=== PATIENT | female | born 1940 | race Caucasian/White ===

== ENCOUNTER 2018-04-28 06:32 | Day surgery (SDC) | payer MEDICARE, OTHER ==
[~2018-04-28] VITALS: Ht 165.1 cm; Wt 74.7 kg
[2018-04-28] VITALS (14 sets, daily range): BP systolic 117–151; BP diastolic 65–83
[2018-04-28] MEDS ORDERED: LEVO125T8 PO (07:06)
[2018-04-28] MEDS ORDERED: CARV-50 PO (07:06)
[2018-04-28] MEDS ORDERED: MULT-955 PO (07:06)
[2018-04-28] MEDS ORDERED: PANT40TA4 PO (07:06)
[2018-04-28] MEDS ORDERED: FURO40TA4 PO (07:06)
[2018-04-28] MEDS ORDERED: MECL12.584 PO (07:06)
[2018-04-28] MEDS ORDERED: ATOR40TA PO (07:06)
[2018-04-28] MEDS ORDERED: LISI40TA4 PO (07:06)
[2018-04-28] MEDS ORDERED: AMIO200T40 PO (07:06)
[2018-04-28] MEDS ORDERED: POTA10TA10 PO (07:06)
[2018-04-28] MEDS ORDERED: RIVA15TA PO (07:06)
[2018-04-28] MEDS ORDERED: MIDAZolam 5mg/ml 2ml vial IV ONE (07:10)
[2018-04-28] MEDS ORDERED: normal saline 1000ml 1,000 ML IV SCH (07:10)
[2018-04-28] MEDS ORDERED: fentaNYL/PF 50MCG/1 ML 2ML syringe IV ONE (07:10)
[2018-04-28 07:52] LABS: ANION GAP 12 (8-16); BLOOD UREA NITROGEN 23 MG/DL (7-18); BUN/CREATININE RATIO 11.8 (6.6-38.0); CHLORIDE 107 MMOL/L (99-107); CREATININE 1.95 MG/DL (0.40-0.90); GLUCOSE 105 MG/DL (70-104); POTASSIUM 3.1 MMOL/L (3.5-5.1); SODIUM 144 MMOL/L (135-145); TOTAL CARBON DIOXIDE 24.8 MMOL/L (24-32); eGFR 25 ML/MIN
[2018-04-28 07:59] LABS: INR 1.1 INR; PROTHROMBIN TIME 11.2 SECONDS (9.0-12.0)
[2018-04-28 08:12] LABS: BASOPHILS % (AUTO) 0.3 % (0-1); EOSINOPHILS # (AUTO) 0.1 X10'3 (0-0.9); LYMPHOCYTES # (AUTO) 0.6 X10'3 (1.1-4.8); LYMPHOCYTES % (AUTO) 13.3 % (21-51); MEAN CORPUSCULAR HEMOGLOBIN 23.6 PG (27.0-31.0); MEAN CORPUSCULAR HGB CONC 31.6 % (33.0-36.5); MEAN CORPUSCULAR VOLUME 74.6 FL (78-98); MEAN PLATELET VOLUME 10.2 FL (7.4-10.4); MONOCYTES # (AUTO) 0.4 X10'3 (0-0.9); MONOCYTES % (AUTO) 7.8 % (2-12); NEUTROPHILS # (AUTO) 3.4 X10'3 (1.8-7.7); NEUTROPHILS % (AUTO) 75.6 % (42-75); PLATELET COUNT 153 X10'3 (140-440); RED BLOOD COUNT 2.87 X10'6 (4.20-5.60); RED CELL DISTRIBUTION WIDTH 17.3 % (11.5-14.5); WHITE BLOOD COUNT 4.5 X10'3 (4.5-11.0)
[2018-04-28 08:17] LABS: HEMATOCRIT 21.4 % (35.0-45.0); HEMOGLOBIN 6.8 g/dl (12.0-16.0)
== END 2018-04-28 11:15 | disposition home or self-care (01) ==
LOC: SSTAY O 06:32
PROVIDERS: ATTEND Internal Medicine Cardiovascular Disease
DX: I48.91 Unspecified atrial fibrillation (principal); I48.4 Atypical atrial flutter; I11.0 Hypertensive heart disease with heart failure; I50.9 Heart failure, unspecified; I25.2 Old myocardial infarction; J45.909 Unspecified asthma, uncomplicated; E03.9 Hypothyroidism, unspecified; I25.10 Atherosclerotic heart disease of native coronary artery without angina pectoris; I42.9 Cardiomyopathy, unspecified; Z87.01 Personal history of pneumonia (recurrent); E05.00 Thyrotoxicosis with diffuse goiter without thyrotoxic crisis or storm; Z87.440 Personal history of urinary (tract) infections; Z86.11 Personal history of tuberculosis; Z88.8 Allergy status to other drugs, medicaments and biological substances; Z79.899 Other long term (current) drug therapy; Z90.49 Acquired absence of other specified parts of digestive tract; Z98.890 Other specified postprocedural states
CPT/HCPCS: 36415; 80048; 83735; 85025; 85610; 92960; 93005; J2250; J3010; J7030

== ENCOUNTER 2019-03-30 09:30 | Day surgery (SDC) | payer MEDICARE, OTHER ==
[2019-03-30] VITALS (11 sets, daily range): BP systolic 135–154; BP diastolic 77–97
[~2019-03-30] VITALS: Ht 165.1 cm; Wt 63.8 kg
[~2019-03-30 09:30] MED LIST: AMIO200T61 PO; ATOR40TA PO; CARV-50 PO; FURO40TA4 PO; LEVO125T8 PO; LISI40TA4 PO; MECL12.584 PO; MULT-955 PO; PANT40TA4 PO; POTA10TA10 PO; RIVA15TA PO
[2019-03-30] MEDS ORDERED: MIDAZolam 5mg/ml 2ml vial IV ONE (09:55)
[2019-03-30] MEDS ORDERED: fentaNYL/PF 50MCG/1 ML 2ML syringe IV ONE (09:55)
[2019-03-30] MEDS ORDERED: IRON45TA7 PO (10:07)
[2019-03-30 10:30] LABS: ALBUMIN 3.8 G/DL (3.4-5.0); ANION GAP 11 (8-16); BLOOD UREA NITROGEN 31 MG/DL (7-18); BUN/CREATININE RATIO 15.7 (6.6-38.0); CALCIUM 8.5 MG/DL (8.5-10.1); CHLORIDE 109 MMOL/L (99-107); CREATININE 1.98 MG/DL (0.40-0.90); GLUCOSE 105 MG/DL (70-104); MAGNESIUM 2.2 MG/DL (1.5-2.4); POTASSIUM 3.5 MMOL/L (3.5-5.1); SODIUM 145 MMOL/L (135-145); TOTAL CARBON DIOXIDE 25.3 MMOL/L (24-32); eGFR 24 ML/MIN
[2019-03-30 10:41] LABS: BASOPHILS % (AUTO) 0.5 % (0-1); EOSINOPHILS # (AUTO) 0.1 X10'3 (0-0.9); EOSINOPHILS % (AUTO) 1.9 % (0-6); HEMATOCRIT 37.8 % (35.0-45.0); HEMOGLOBIN 12.8 g/dl (12.0-16.0); LYMPHOCYTES # (AUTO) 0.8 X10'3 (1.1-4.8); MEAN CORPUSCULAR HEMOGLOBIN 31.7 PG (27.0-31.0); MEAN CORPUSCULAR HGB CONC 33.8 g/dL (33.0-36.5); MEAN CORPUSCULAR VOLUME 93.7 FL (78-98); MEAN PLATELET VOLUME 10.2 FL (7.4-10.4); MONOCYTES # (AUTO) 0.3 X10'3 (0-0.9); MONOCYTES % (AUTO) 6.7 % (2-12); NEUTROPHILS # (AUTO) 2.9 X10'3 (1.8-7.7); NEUTROPHILS % (AUTO) 71.9 % (42-75); PLATELET COUNT 98 X10'3 (140-440); RED BLOOD COUNT 4.03 X10'6 (4.20-5.60)
== END 2019-03-30 12:15 | disposition home or self-care (01) ==
LOC: SSTAY O 09:30
PROVIDERS: ATTEND Internal Medicine Cardiovascular Disease
DX: I48.19 Other persistent atrial fibrillation (principal); Z79.01 Long term (current) use of anticoagulants; I25.10 Atherosclerotic heart disease of native coronary artery without angina pectoris; E03.9 Hypothyroidism, unspecified; I44.7 Left bundle-branch block, unspecified
CPT/HCPCS: 36415; 80048; 83735; 85025; 85610; 92960; 93005; J2250; J3010

== ENCOUNTER 2021-01-30 07:21 | Day surgery (SDC) | payer MEDICARE, OTHER ==
[~2021-01-30] VITALS: Ht 165.1 cm; Wt 60.7 kg
[2021-01-30] VITALS (11 sets, daily range): BP systolic 110–135; BP diastolic 71–94
[~2021-01-30 07:21] MED LIST changes: -ATOR40TA PO; +IRON45TA7 PO; +LISI40TA13 PO; -LISI40TA4 PO; -MECL12.584 PO; -PANT40TA4 PO; +PANT40TA54 PO
[2021-01-30] MEDS ORDERED: fentaNYL/PF 50MCG/1 ML 2ML syringe IV ONE (07:55)
[2021-01-30] MEDS ORDERED: normal saline 1000ml 1,000 ML IV SCH (07:55)
[2021-01-30] MEDS ORDERED: MIDAZolam 1mg/ml 10ml vial IV ONE (07:55)
[2021-01-30] MEDS ORDERED: APIX5TAB3 PO (07:57)
[2021-01-30] MEDS ORDERED: CARV-49 PO (07:57)
[2021-01-30] MEDS ORDERED: BACI1CAP10 (07:58)
[2021-01-30 09:16] LABS: ALBUMIN 3.2 G/DL (3.4-5.0); ANION GAP 9 (8-16); BLOOD UREA NITROGEN 28 MG/DL (7-18); BUN/CREATININE RATIO 15.5 (6.6-38.0); CALCIUM 8.5 MG/DL (8.5-10.1); CHLORIDE 108 MMOL/L (99-107); CREATININE 1.81 MG/DL (0.40-0.90); EOSINOPHILS # (AUTO) 0.1 X10'3 (0-0.9); GLUCOSE 90 MG/DL (70-104); HEMATOCRIT 36.9 % (35.0-45.0); HEMOGLOBIN 12.2 g/dl (12.0-16.0); LYMPHOCYTES # (AUTO) 0.6 X10'3 (1.1-4.8); LYMPHOCYTES % (AUTO) 15.2 % (21-51); MAGNESIUM 2.2 MG/DL (1.5-2.4); MEAN CORPUSCULAR HEMOGLOBIN 31.2 PG (27.0-31.0); MEAN CORPUSCULAR VOLUME 94.7 FL (78-98); MONOCYTES # (AUTO) 0.3 X10'3 (0-0.9); MONOCYTES % (AUTO) 9.1 % (2-12); NEUTROPHILS # (AUTO) 2.7 X10'3 (1.8-7.7); NEUTROPHILS % (AUTO) 72.7 % (42-75); PLATELET COUNT 116 X10'3 (140-440); POTASSIUM 3.5 MMOL/L (3.5-5.1); RED CELL DISTRIBUTION WIDTH 17.5 % (11.5-14.5); SODIUM 144 MMOL/L (135-145); TOTAL CARBON DIOXIDE 27.4 MMOL/L (24-32); WHITE BLOOD COUNT 3.8 X10'3 (4.5-11.0); eGFR 27 ML/MIN
== END 2021-01-30 12:15 | disposition home or self-care (01) ==
LOC: SSTAY O 07:21
PROVIDERS: ATTEND Internal Medicine Cardiovascular Disease
DX: I48.4 Atypical atrial flutter (principal); I25.10 Atherosclerotic heart disease of native coronary artery without angina pectoris; E03.9 Hypothyroidism, unspecified; I47.1 Supraventricular tachycardia; I44.7 Left bundle-branch block, unspecified; I42.9 Cardiomyopathy, unspecified; Z87.442 Personal history of urinary calculi; Z87.440 Personal history of urinary (tract) infections; Z90.49 Acquired absence of other specified parts of digestive tract; Z98.890 Other specified postprocedural states; Z79.01 Long term (current) use of anticoagulants; Z79.899 Other long term (current) drug therapy; Z88.8 Allergy status to other drugs, medicaments and biological substances; Z82.49 Family history of ischemic heart disease and other diseases of the circulatory system; Z83.6 Family history of other diseases of the respiratory system
CPT/HCPCS: 36415; 80048; 83735; 85025; 85610; 92960; 93005; 94799; J2250; J3010; J7030

== ENCOUNTER 2024-11-13 06:26 | Day surgery (SDC) | payer MEDICARE, OTHER ==
[2024-11-13] VITALS (8 sets, daily range): BP systolic 112–159; BP diastolic 73–100; PULSE 60–70; RESP 16; TEMP 97.6; O2SAT 92–98
[~2024-11-13] VITALS: Ht 165.1 cm; Wt 56.1 kg
[~2024-11-13 06:26] MED LIST changes: -AMIO200T61 PO; +AMIO200T76 PO; +APIX5TAB3 PO; +BACI1CAP10; +CARV-49 PO; -CARV-50 PO; -LISI40TA13 PO; +LISI40TA20 PO; -MULT-955 PO; +POTA-188 PO; -POTA10TA10 PO; -RIVA15TA PO
[2024-11-13] MEDS ORDERED: ceFAZolin 2,000MG in D5W 50mL IV ONE (07:00)
[2024-11-13] MEDS ORDERED: CARV12.53 PO (07:17)
--- NOTE | 2024-11-13 07:17 | ELECTROCARDIOGRAPH REPORT ---
[facility] Test Date: 2024-11-13 Test Time: 07:15:24 Pat Name: DRE ESPINOZA Department: [facility] Patient ID: [facility]-[id number] Room: Gender: F Fishing Accessories Maker: THOMAS : 1940 Requested By: VICENTE SAINZ Order Number: [id number] Reading MD: Dr. DEBO Deshpande Measurements Intervals [employer] Rate: 60 P: 0 MN: 52 QRS: 268 QRSD: 165 T: 93 QT: 550 QTc: 550 Interpretive Statements Ventricular-paced rhythm No further analysis attempted due to paced rhythm Electronically Signed On 11-14-2024 15:38:[address] DEBO Deshpande Please click the below link to view image of tracing.
[2024-11-13 07:24] LABS: MEAN PLATELET VOLUME 10.2 FL (7.4-10.4); RED CELL DISTRIBUTION WIDTH 16.4 % (11.5-14.5)
[2024-11-13 07:25] LABS: APTT 24 SECONDS (22-32); INR 1.0 INR
[2024-11-13] MEDS ORDERED: CALC250T2 PO (07:25)
[2024-11-13] MEDS ORDERED: MULT-1085 PO (07:25)
[2024-11-13] MEDS ORDERED: ANTI1CAP5 (07:28)
[2024-11-13 07:30] LABS: CREATININE 1.92 MG/DL (0.40-0.90); TOTAL CARBON DIOXIDE 26.6 MMOL/L (24-32); eCRCL 19 ML/MIN; eGFR 25 ML/MIN
[2024-11-13] MEDS: vancomycin/NS 1 GM ADD-VANTAGE 250 ML IV ONE (07:48)
[2024-11-13] MEDS: normal saline 1000ml 1,000 ML IV PRN (07:48)
[2024-11-13] MEDS ORDERED: LIDOcaine 1% W/epiNEPHrine 1:100,000 20ml vial ONE (08:45)
[2024-11-13] MEDS ORDERED: fentaNYL/PF 50MCG/1 ML 2ML syringe ONE (08:45)
[2024-11-13] MEDS ORDERED: midazolam 1 mg/ML 2ml injection ONE ×2 (08:45→09:35)
[2024-11-13] MEDS ORDERED: vancomycin 1,000mg inj ONE (08:45)
[2024-11-13] MEDS ORDERED: normal saline 500ml IV soln 400 ML IV ONE (10:50)
--- NOTE | 2024-11-13 11:42 | CARDIOLOGY REPORT ---
DATE OF SERVICE: 11/13/2024 DICTATING PHYSICIAN: SANTOS SAINZ DO CARDIAC CATHETERIZATION REPORT REFERRING PHYSICIAN: Santos Sainz DO. PROCEDURES PERFORMED: * Removal of existing biventricular pacemaker/ICD pulse generator. * Pacemaker pocket revision. * Implant of new biventricular pacemaker/ICD pulse generator. PREOPERATIVE DIAGNOSES: * Left bundle branch block. * Cardiomyopathy associated with left bundle branch block. * Pacemaker defibrillator generator at the elective replacement interval. POSTOPERATIVE DIAGNOSES: * Left bundle branch block. * Cardiomyopathy associated with left bundle branch block. * Pacemaker defibrillator generator at the elective replacement interval. CLINICAL HISTORY: This 84-year-old woman has previously developed a severe cardiomyopathy associated with left bundle branch block. For that reason, she received a biventricular pacemaker/ICD in early 03/2013. The generator was replaced in 05/2019, but it is again at the elective replacement interval. ANESTHESIA: Conscious sedation with local to skin. DEVICE REMOVED: Medtronic pulse generator, model number [id number] and serial number [id number]. EXISTING ELECTRODES: Medtronic coronary venous/LV electrode, model number 4195 and serial number [id number]; Medtronic RVICD electrode, model number 6947 and serial number [id number]; Medtronic atrial electrode model number 4076 and serial number [id number]. DEVICE IMPLANTED: Medtronic pulse generator, model number [id number] and serial number [id number]. DESCRIPTION OF PROCEDURE: The patient was sedated with fentanyl and Versed. She was then prepared and draped in the usual manner. The left pectoral region was liberally infiltrated with 1% lidocaine containing a 1:100,000 mixture of epinephrine. The pacemaker pocket was then opened by incising along the existing scar line. The entire encapsulation of the generator and electrodes was removed. A subpectoral pocket was then easily created. The old generator was removed and the new generator was attached to the existing electrodes. Next, the electrodes and the generator were placed in the subpectoral pocket. The entire pocket was then irrigated with a vancomycin antibiotic solution. The generator was enclosed in a TYRX pouch. The subpectoral pocket was closed loosely with 3-0 Vicryl. The subcutaneous layer was also closed with 3-0 Vicryl and the skin was approximated with 4-0 Monocryl. ESTIMATED BLOOD LOSS: Less than 5 mL. COMPLICATIONS: None. ____ parameters were as follows: Mode DDDR, LRL 60 BPM, upper activity rate 120 BPM, upper tracking rate 130 BPM, paced AV delay 130 milliseconds, sensed AV delay 100 milliseconds. Amplitude, pulse width and sensitivity in both atrial and right ventricular electrodes was set at 2 volts, 0.4 milliseconds and 0.3 millivolts, respectively. Left ventricular amplitude was set at 2 volts with a pulse width of 0.4 milliseconds. For the ventricular tachyarrhythmia management algorithms, please see the Medtronic implant record. SANTOS SAINZ DO TID: [id number] RECEIPT: [id number] RYLEY/ANDRÉS
== END 2024-11-13 12:00 | disposition home or self-care (01) ==
LOC: SSTAY O 06:26
PROVIDERS: ATTEND Internal Medicine Cardiovascular Disease
DX: Z45.02 Encounter for adjustment and management of automatic implantable cardiac defibrillator (principal); I44.7 Left bundle-branch block, unspecified; I42.9 Cardiomyopathy, unspecified; I25.10 Atherosclerotic heart disease of native coronary artery without angina pectoris; N18.4 Chronic kidney disease, stage 4 (severe); I48.0 Paroxysmal atrial fibrillation; E03.9 Hypothyroidism, unspecified; I48.20 Chronic atrial fibrillation, unspecified; Z79.01 Long term (current) use of anticoagulants; Z79.890 Hormone replacement therapy; Z79.899 Other long term (current) drug therapy; Z90.49 Acquired absence of other specified parts of digestive tract; Z90.89 Acquired absence of other organs; Z88.6 Allergy status to analgesic agent
CPT/HCPCS: 33264; 36415; 80048; 83735; 85025; 85610; 85730; 93005; 99152; 99153; A6258; C1882; J2250; J3010; J3373; J3490; J7030; Z7610; 33229

== ENCOUNTER 2025-01-11 00:20 | Inpatient (IN) | payer MEDICARE, OTHER ==
[2025-01-11] VITALS (30 sets, daily range): BP systolic 83–152; BP diastolic 47–87; PULSE 60–69; RESP 11–21; TEMP 96.9–97.7; O2SAT 91–99
[~2025-01-11] VITALS: Ht 165.1 cm; Wt 57.6 kg
[~2025-01-11 00:20] MED LIST changes: +ANTI1CAP5 PO; +CALC250T2 PO; -CARV-49 PO; +CARV12.53 PO; +MULT-1085 PO
[2025-01-11 02:02] LABS: MEAN PLATELET VOLUME 9.8 FL (7.4-10.4); RED CELL DISTRIBUTION WIDTH 16.9 % (11.5-14.5)
[2025-01-11 02:10] LABS: APTT 27 SECONDS (22-32); INR 1.2 INR
[2025-01-11 02:13] LABS: CREATININE 1.47 MG/DL (0.40-0.90); TOTAL CARBON DIOXIDE 28.8 MMOL/L (24-32); eCRCL 25 ML/MIN; eGFR 34 ML/MIN
[2025-01-11] MEDS: magnesium sulf-water 2g/50mL 50 ML IV ONE (02:44)
[2025-01-11] MEDS: potassium CL 10mEq/100ml bag 100 ML IV ONE (02:50)
[2025-01-11] MEDS: potassium Cl 20 mEq SR tablet PO ONE (02:51)
--- NOTE | 2025-01-11 03:36 | Physician Documentation ---
History of Present Illness ~ Chief Complaint: Hip pain Stated Complaint: XFER Time Seen by MD: 03:27 OK to notify your PCP?: Yes Source: patient, RN/MD, EMS, RN notes reviewed, EMS notes reviewed, old records Mode of Arrival: EMS Exam Limitations: no limitations HPI This pleasant 84-year-old female with a known history of hypertension hyperthyroidism cardiomyopathy AFib on Eliquis apparently has a ground level fall after she stepped off the curb losing her balance. She landed on her right hip had immediate pain. She did hit her head. Did not lose consciousness. She is unable to ambulate went to [facility] in [place]. Patient was worked up and was found to have a intertrochanteric right hip fracture. Patient apparently has an ejection fraction of 15-20% secondary to mild aortic stenosis which was last done on 2020. Patient is complaining of some pain. As well as some nausea for which her pain was treated with morphine and also received some Zofran. She is now here for evaluation and care. Patient is radiographic studies of the CT spine CT head were all negative CT pelvis showed a fracture. Past medical history hyperthyroidism atrial fibrillation on Eliquis coronary a rtery disease congestive heart failure with an EF of 15-20% Graves disease kidney stones left bundle branch block prior pneumonia SVT UTIs hypothyroidism hyperthyroidism cardiomyopathy. SVT Surgical history cholecystectomy Social history denies tobacco alcohol or recreational drugs. Tetanus within 5 Years?: Yes Medication Reconciliation Allergies: Coded Allergies: aspirin (Verified Allergy, Unknown, 01/11/25) Uncoded Allergies: MRI DYE (Allergy, Unknown, 04/28/18) Scheduled Amiodarone Hcl (Cordarone), 1 TAB PO DAILY, (Reported) Apixaban (Eliquis), 1 TAB PO BID, (Reported) Calcium Citrate (Calcium Citrate), 1 TAB PO DAILY, (Reported) Carvedilol (Carvedilol), 1 TAB PO BID, (Reported) Furosemide (Furosemide), 1 TAB PO DAILY, (Reported) Iron,Carbonyl (Feosol), 45 MG PO DAILY, (Reported) Levothyroxine Sodium (Levothyroxine Sodium), 1 TAB PO DAILY, (Reported) Lisinopril* (Lisinopril*), 1 TAB PO BID, (Reported) Multivitamin (Multi Vitamin Daily), 1 TAB PO DAILY, (Reported) Pantoprazole Sodium (Pantoprazole Sodium), 1 TAB PO DAILY, (Reported) Potassium Chloride* (Klor-Con*), 2 TAB PO DAILY, (Reported) Miscellaneous Medications Antiox #11/Om3/Dha/Epa/Lut/Mar (Eye Health Adult 50+ Softgel), (Reported) Bacillus Coagulans/Inulin (Probiotic Formula Capsule), (Reported) Past Medical History Patient History: Cardiomyopathy FATHER, , Age: 75, Cause: Old age FH: COPD (chronic obstructive pulmonary disease) MOTHER, , Age: 79, Cause: Old age Review of Systems All Other Systems at this time: Reviewed and Negative Physical Exam Vital Signs: RN Vital Signs have been reviewed: Yes, Temperature: 97.5, Source: Oral, Heart Rate: 64, Respiratory Rate: 12, BP: 156/88, Pulse Oximetry: 99, Weight: 57.600 Oxygen Flow Rate: 2.0 Physical Exam General: The patient is well developed, well nourished, nontoxic appearing and is in mild acute distress. Skin: [place], warm and dry with no rashes. HEENT: Head was normocephalic and atraumatic. Eyes - pupils equal, round, reactive to light and accommodation. Extraocular movements were intact. Conjunctivae were nonicteric. The mouth and oropharynx were clear with moist mucous membranes. There were no pharyngeal exudates or erythema. Neck: Supple and nontender. There was no jugular venous distention, Chest: Clear to auscultation bilaterally without wheezes, rales or rhonchi. No accessory muscle use. Heart: Rate regular and rhythmic. S1, S2. 3/6 systolic ejection murmurs. Palpation of the chest wall was normal. No rubs or thrills. Abdomen: Soft, nontender and nondistended. Positive bowel sounds. No guarding or rebound. No hepatosplenomegaly or palpable masses. Extremities: No cyanosis, clubbing The patient moves all extremities. Pulses were equal and symmetric. 2+ pitting edema bilaterally lower extremities decreased range of motion right hip Neurologic: Motor sensory grossly intact Psychologic: The patient was oriented to person, place and time. The patient demonstrated appropriate judgement and insight. Progress Progress Note 3:30 a.m. [facility] orthopedic surgery is aware of the case. 4 a.m. discussed the case with the hospitalist Results/Orders Reviewed/noted all lab results: Yes Results/Orders Orders - NELSON CASTRO MD Ekg Pre Op (01/11/25 01:06) Magnesium Sulf-Water 2g/50ml (Magnesium (01/11/25 02:20) Chest,Single View (01/11/25 ) Completed Orders - NELSON CASTRO MD Cbc/Diff (01/11/25 01:06) Pt Inr (01/11/25 01:06) PTT (01/11/25 01:06) Type And Screen (01/11/25 01:06) CMP (01/11/25 01:06) Magnesium Oxide Tablet (Mag-Ox 400mg Tab (01/11/25 02:20) Potassium Cl Sr Tablet (K-Dur Tablet) (01/11/25 02:20) Potassium Cl 10meq/100ml Bag (Potassium (01/11/25 02:20) MG (01/11/25 01:35) Medications Received in ER Medications (Trade) Dose Ordered Sig/Vincent Route PRN Reason Start Time Stop Time Status Last Admin Dose Admin (mag-Ox 400mg tablet) 400 mg ONCE ONCE PO 01/11/25 02:20 01/11/25 02:21 DC 01/11/25 02:50 400 MG Magnesium Sulfate 50 ml @ 25 mls/hr ONCE ONCE IV 01/11/25 02:20 01/11/25 04:19 01/11/25 02:44 25 MLS/HR (K-DUR tablet) 20 meq ONCE ONCE PO 01/11/25 02:20 01/11/25 02:21 DC 01/11/25 02:51 20 MEQ Potassium Chloride 100 ml @ 100 mls/hr ONCE ONCE IV 01/11/25 02:20 01/11/25 03:19 DC 01/11/25 02:50 100 MLS/HR Vital Signs 01/11/25 01/11/25 01/11/25 01/11/25 00:28 02:21 02:23 03:14 Temp 97.5 97.5 Pulse 63 64 Resp 14 12 B/P (MAP) 169/95 156/88 (110) Pulse Ox 98 99 O2 Flow Rate 2.0 2.0 Laboratory Tests Test 01/11/25 01:35 White Blood Count 8.2 Red Blood Count 3.76 L Hemoglobin 11.9 L Hematocrit 35.4 Mean Corpuscular Volume 94.1 Mean Corpuscular Hemoglobin 31.6 H Mean Corpuscular Hemoglobin Concent 33.5 Red Cell Distribution Width 16.9 H Platelet Count 102 L Mean Platelet Volume 9.8 Neutrophils (%) (Auto) 81.6 H Lymphocytes (%) (Auto) 8.9 L Monocytes (%) (Auto) 8.8 Eosinophils (%) (Auto) 0.4 Basophils (%) (Auto) 0.3 Neutrophils # (Auto) 6.7 Lymphocytes # (Auto) 0.7 L Monocytes # (Auto) 0.7 Eosinophils # (Auto) 0.0 Basophils # (Auto) 0.0 CBC Comment Prothrombin Time 11.9 INR International Normalized Ratio 1.2 Activated Partial Thromboplast Time 27 Coagulation Comments Sodium Level 144 Potassium Level 2.9 *L Chloride Level 108 H Carbon Dioxide Level 28.8 Anion Gap 7 L Blood Urea Nitrogen 25 H Creatinine 1.47 H Estimated GFR/1.73 m2 34 BUN/Creatinine Ratio 17.0 Glucose Level 119 H Calcium Level 8.4 L Magnesium Level 1.9 Total Bilirubin 1.2 H Aspartate Amino Transf (AST/SGOT) 17 Alanine Aminotransferase (ALT/SGPT) 16 Alkaline Phosphatase 63 Total Protein 6.2 L Albumin 3.3 L Globulin 2.9 Albumin/Globulin Ratio 1.1 Chemistry Comments Re-Evaluation Re-Evaluation : Re-Evaluation: Unchanged Progress Patient was seen and examined. Patient is given reassurance. Patient is comfortable received pain meds just prior to arrival. Patient is currently comfortable sleeping. Patient's laboratory work was obtained. CBC is within normal limits no anemia. Chemistry shows a low potassium of 2.9. Magnesium 1.9 patient's electrolytes were supplemented. Slight prerenal dehydration with a BUN of 25 creatinine 1.47. Coagulation is within normal limits. Patient was initially treated at [place]. Patient's potassium at [place] was 3.2. BUN was 27 creatinine was 1.51. Patient has been on a spanish instructor and pending preoperative workup and admission. Continuous spanish instructor interpretation shows normal sinus rhythm heart rate 60s paced rhythm. No ectopy, normal, my interpretation. Pulse oximetry monitor interpretation shows oxygenation at 98% on 2 L, abnormal, my interpretation. EKG/XRAY/CT/US/VASC/MRI EKG : Intepreting Monitor?: Yes Additional Comment 1:08 a.m. EKG shows paced rhythm wide QRS complex QTC 537 poor R-wave progression Medical Decision Making Additional info obtained from: old records Differential Dx:Considerations: Include: Closed head injury, Cardiac injury, Fracture(s), Intraabdominal injury, Pneumothorax, Cerebral contusion, Pulmonary contusion, Spine injury, Tracheal injury, Urological injury, Vascular injury, Abrasion(s), Contusion(s), Foreign body(s), Hematoma(s), Laceration(s), Encephalopathy, Other Departure Disposition: ADMITTED INPATIENT Admitted to Inpatient Unit: yes, to hospitalist, to orthopedist Admission Level of Care: PCU with Tele Impression: Primary Impression: Fracture of femur Qualified Codes: S72.141A - Displaced intertrochanteric fracture of right femur, initial encounter for closed fracture Additional Impression: Hypokalemia Condition: Fair Referrals: NO PRIMARY CARE PROVIDER (PCP) Education Educated: Patient Educated regarding: diagnosis, need for follow up, other Critical Care Note Total Time (mins): 30 Critical Care Note The very real possibility of a deterioration of this patient's condition required the highest level of my preparedness for sudden, emergent intervention. I provided critical care services, which included medication orders, frequent reevaluations of the patient's condition and response to treatment, ordering and reviewing test results, and discussing the case with various consultants. Excludes time spent performing separately billable procedures. The critical care time associated with the care of the patient was. 30 minutes Signature Scribe Signature: No scribed Attestation: The note accurately reflects work and decisions made by me.Nelson Castro MD 01/11/25 03:36 NELSON CASTRO MD Jan 11, 2025 03:36
[2025-01-11] MEDS ORDERED: potassium Cl 20 mEq SR tablet PO PRN ×4 (04:25→08:45)
[2025-01-11] MEDS ORDERED: magnesium sulf-water 4G/100mL 100 ML IV PRN ×2 (04:25→08:45)
[2025-01-11] MEDS ORDERED: mag hydrox/Alum hydrox/simeth 30ml oral suspension PO PRN (04:25)
[2025-01-11] MEDS ORDERED: magnesium Cl slow-release 64mg tablet PO PRN (04:25)
[2025-01-11] MEDS ORDERED: magnesium sulf-water 2g/50mL 50 ML IV PRN ×2 (04:25→08:45)
[2025-01-11] MEDS: HYDROmorphone inj. 0.5 MG/0.5 ML DISP.SYRIN IV PRN (04:33)
--- NOTE | 2025-01-11 04:35 | HISTORY AND PHYSICAL-Residence ---
History & Physical Providers to CC Resident Creating Document: [employer] RES ~ History of Present Illness Reason for Admit\Complaint: Right hip fracture History of Present Illness This is an 84-year-old female patient with past medical history of AFib, HFrEF, hypertension, hypothyroidism, CKD, and pacemaker, who was transferred from [facility] due to a right hip fracture. She had a mechanical fall yesterday around 7:00 p.m. while stepping on a curb, falling on the right side of her hip, followed by severe pain and inability to ambulate. The patient also had a head injury, but denies syncope, nausea, vomiting, dizziness, or vision changes. Pain is now controlled, and she denies any other symptoms such as chest pain, shortness of breath, gastrointestinal, or urinary symptoms. No other complaints at this moment. Allergies: Coded Allergies: aspirin (Verified Allergy, Unknown, 01/11/25) Uncoded Allergies: MRI DYE (Allergy, Unknown, 04/28/18) Home Medications Home Medications Active Reported Eye Health Adult 50+ Softgel (Antiox #11/Om3/Dha/Epa/Lut/Mar) 250 Mg (90 Mg-160 Mg)-5 Mg-1 Mg Capsule Multi Vitamin Daily (Multivitamin) 1 Each Tablet 1 Tab PO DAILY 30 Days Calcium Citrate 250 Mg Calcium Tablet 1 Tab PO DAILY 30 Days Carvedilol 12.5 Mg Tablet 1 Tab PO BID Probiotic Formula Capsule (Bacillus Coagulans/Inulin) 1 Each Capsule Eliquis (Apixaban) 5 Mg Tablet 1 Tab PO BID Feosol (Iron,Carbonyl) 45 Mg Tablet 45 Mg PO DAILY Klor-Con* (Potassium Chloride) 10 Meq Tablet.sa 2 Tab PO DAILY 30 Days Lisinopril* (Lisinopril) 40 Mg Tablet 1 Tab PO BID Cordarone (Amiodarone HCl) 200 Mg Tablet 1 Tab PO DAILY Furosemide 40 Mg Tablet 1 Tab PO DAILY Levothyroxine Sodium 125 Mcg Tablet 1 Tab PO DAILY Pantoprazole Sodium 40 Mg Tablet.dr 1 Tab PO DAILY Past Medical History Past Medical History Atrial fibrillation Heart failure with reduced EF Hypertension Hypothyroidism Chronic kidney disease Biventricular pacemaker/ICD Past Surgical History Surgical History Comment Biventricular pacemaker/ICD Cholecystectomy Right inner ear surgery Family History Family History: Cardiomyopathy FATHER, , Age: 75, Cause: Old age FH: COPD (chronic obstructive pulmonary disease) MOTHER, , Age: 79, Cause: Old age Past Social History Smoking: Non-Smoker Alcohol Use: None Drug Use: None Lives with: Spouse Lives In: Home Occupation: retired ROS All Other Systems: Reviewed and Negative Constitutional: Reports: no symptoms reported; Denies: see HPI, chills, diaphoresis, fever, malaise, weakness, other Eyes: Denies: no symptoms reported, see HPI, pain, discharge, blurred vision, double vision, itching, photophobia, redness, tearing, other ENT: Denies: no symptoms reported, see HPI, ear pain, ear bleeding, ear discharge, hearing loss, ear ringing, nose pain, nose bleeding, nose congestion, nose discharge, throat pain, throat swelling, voice change, mouth pain, mouth bleeding, mouth swelling, other Respiratory: Denies: no symptoms reported, see HPI, cough, orthopnea, shortness of breath, SOB with exertion, SOB at rest, stridor, wheezing, hemoptysis, pain with breathing, other Cardiovascular: Denies: no symptoms reported, see HPI, chest pain, left arm pain, diaphoresis, lightheadedness, syncope, edema, palpitations, irregular heart rate, other Gastrointestinal: Denies: no symptoms reported, see HPI, abdomen distended, abdominal pain, nausea, vomiting, diarrhea, constipated, melena, hematemesis, hematochezia, rectal bleeding, rectal pain, dysphagia, poor appetite, poor fluid intake, other Genitourinary: Denies: no symptoms reported, see HPI, burning, discharge, dysuria, frequency, flank pain, hematuria, incontinence, pain, decreased urine output, urgency, other Female Genitalia: Denies: no reported symptoms, see HPI, vaginal discharge, vaginal pain, pelvic pain, abnormal bleeding, dyspareunia, , other Neurological: Reports: headache; Denies: no symptoms reported, see HPI, speech problem, dizziness, fainting, tingling, left sided numbness, right sided numbness, left sided weakness, right sided weakness, problems walking, unable to move lower ext, unable to move upper ext, petit mal seizures, tonic-clonic seizures, cognitive dysfunction, other Musculoskeletal: Reports: see HPI, pain, swelling, joint pain, muscle stiffness; Denies: no symptoms reported, back pain, gout, joint swelling, muscle pain, muscle swelling, neck pain, other Integumentary: Denies: no symptoms reported, see HPI, rash, itching, lesions, lumps, bruise(s), wound(s), laceration(s), dryness, change in color, other Allergic/Immunologic: Denies: no symptoms reported, see HPI, hives, itching, frequent infections, difficulty healing, other Hematologic/Lymphatic: Denies: no symptoms reported, see HPI, anemia, blood clots, easy bleeding, easy bruising, swollen glands, other Endocrine: Denies: no symptoms reported, see HPI, excessive sweating, flushing, intolerance to cold, intolerance to heat, increased hunger, increased thrist, increased urine, unexplained weight gain, unexplained weight loss, other Psychiatric: Denies: no symptoms reported, see HPI, depression, anxiety, sleeplessness, hopeless, suicidal, hallucinations, other Exam Vitals: Vital Signs Date Time Temp Pulse Resp B/P (MAP) Pulse Ox O2 Delivery O2 Flow Rate FiO2 01/11/25 03:14 01/11/25 02:21 97.5 64 12 99 2.0 General: General: Awake and Alert, no acute distress. HEENT: Conjunctiva pink, Sclera clear, Mucus Membranes moist. Neck: Supple without masses and tenderness. Resp: Unlabored. Lungs clear to auscultation bilaterally. Heart: Irregular Rate and rhythm, normal S1 and S2, systolic 2/6 murmur, no rub or gallop. Abdomen: Soft and non tender no organomegaly Extremities: Right lower extremity shorted and externally rotated. Bilateral 1+ pitting edema. No cyanosis or clubbing. Skin: Warm and Dry. Neuro: Awake, alert, oriented, speech is normal Cranial nerve exam-normal visual field, normal extraocular movements, normal facial sensations and facial movements, normal hearing, uvula in midline, tongue protrusion and shoulder shrugging normal Strength- normal tone, bilateral upper and lower extremity 5/5, deep tendon reflexes-2, absent Babinski Cerebellar-normal finger-nose test Diagnostic Data Last Recorded Lab Results: 01/11/255 01/11/25134 Diagnostic Data: Laboratory Tests Test 01/11/25 01:35 Prothrombin Time 11.9 SECONDS (9.0-12.0) INR International Normalized Ratio 1.2 INR Activated Partial Thromboplast Time 27 SECONDS (22-32) Coagulation Comments Advance Care Planning Advanced Care plannin - 30 Minutes (I have discussed advanced care directives. Patient requests full code status.) Additional Plan Assessment 84-year-old female patient transferred from [facility] due to right hip fracture as a consequence of mechanical fall. Intertrochanteric fracture of the right femur Patient had a mechanical fall while stepping on a curb Mild head trauma, no syncope, nausea or vomiting Right lower extremity shorted and externally rotated CT head: No evidence for acute intracranial bleed. CT pelvis: Acute nondisplaced intertrochanteric fracture proximal femur CT cervical spine: No acute fracture Plan Dr. Hester was consulted by the ER physician, is going to evaluate the patient in the morning Pain management DVT prophylaxis with Eliquis Patient might need surgical clearance by Dr. Temple NPO for now Permanent Atrial fibrillation Biventricular pacemaker/ICD Patient had two unsuccessful ablation Heart rate is controlled Continue Eliquis, amiodarone and carvedilol after med rec Heart failure with reduced EF, not on acute exacerbation Last echo reported at [facility] indicates EF of 15 to 20% Chronic bilateral lower extremity edema, denies shortness for breath or orthopnea Ordered BNP Ordered new echocardiogram Chronic kidney disease stage IIIB Cr 1.47, BUN 25 GFR 35 mL/min/1.73m2 Monitor daily Severe hypokalemia K 2.9, Mg 1.9 Possibly related to chronic Lasix Replacement per protocol Hypertension Hypothyroidism Ordered TSH Continue lisinopril 40 mg daily Pending med reconciliation Code Status: Full code DVT prophylaxis: Eliquis after med rec Analgesia/sedation: Dilaudid/[place]/tube: PIV GI prophylaxis: None Nutrition: NPO for now Prognosis: Guarded Disposition: Admit to ortho floor with telemetry. Pending med reconciliation. Pending orthopedic evaluation. Resident MD attestation The above note has been reviewed and supervised by a senior resident PGY2/PGY3 Patient was seen, examined and discussed with the attending physician Attending Physician Attestation Evaluation via HIPAA compliant A/V device. I discussed the case with the resident and I agree with the resident's documentation. 84-year-old woman with a history of heart failrue with reduced ejection fraction (LVEF 20%), atrial fibrillation, essential hypertension, CKD stage 3, and hypothyroidism now admitted after a mechanical fall resulting in a right intertrochanteric hip fracture. The treatment plan includes Orthopedic Surgery evaluation and continuation of outpatient cardiovascular medications. Time spent 50 minutes. Date of Service: Jan 11, 2025 Billing Provider: JAMAR BALL MD, LUCAS, RES Jan 11, 2025 04:35 JAMAR BALL MD Jan 11, 2025 07:51
[2025-01-11] MEDS: PERFLUTREN PROTEIN-A MICROSPHR (Optison) 0.22 MG/ML 3ML VIAL IV ONE (04:54)
[2025-01-11 05:19] LABS: LEUKOCYTE ESTERASE ,URINE NEGATIVE (Neg); NITRITES, URINE NEGATIVE (Neg); OCCULT BLOOD,URINE TRACE-INTACT (Neg)
[2025-01-11 05:20] LABS: UA COLLECTION TYPE CLN CATCH MIDSTREAM
--- NOTE | 2025-01-11 05:30 | ELECTROCARDIOGRAPH REPORT ---
[facility] Test Date: 2025-01-11 Test Time: 01:08:10 Pat Name: DRE ESPINOZA Department: EMERGENCY ROOM Room: ED 7 1 Gender: F Cna Instructor: : 1940 Requested By: NELSON CASTRO Order Number: [id number] Reading MD: Dr. Nelson Castro Measurements Intervals [place] Rate: 63 P: 0 TX: 0 QRS: -89 QRSD: 166 T: 98 QT: 524 QTc: 537 Interpretive Statements Afib/flut and V-paced complexes No further analysis attempted due to paced rhythm Electronically Signed On 01-11-2025 5:36:[address] Nelson Castro Please click the below link to view image of tracing.
[2025-01-11] MEDS ORDERED: FERR325T28 PO (05:36)
[2025-01-11] MEDS ORDERED: LISI40TA20 PO (05:36)
[2025-01-11 05:46] LABS: SQUAMOUS EPITHELIAL CELL,UR FEW /LPF (FEW)
[2025-01-11 07:02] LABS: PRO BRAIN NATRIURETIC PEPTIDE 13867 PG/ML (0-450)
[2025-01-11] MEDS: pantoprazole 40mg Tablet.DR PO SCH (07:30)
--- NOTE | 2025-01-11 07:56 | RADIOLOGY REPORT ---
Right HIP RADIOGRAPH. CLINICAL INDICATION: pain TECHNIQUE: 4 views of the right hip were obtained. FINDINGS: Nondisplaced right femoral neck fracture. IMPRESSION: 1. Nondisplaced right femoral neck fracture.
--- NOTE | 2025-01-11 07:57 | RADIOLOGY REPORT ---
CHEST RADIOGRAPH Indication: Pre-op Technique: Single frontal view of the chest was obtained Comparison: None FINDINGS: Lines and Tubes: Left-sided pacemaker/AICD Lungs: No focal consolidation. Pleura: No effusion. No pneumothorax. Cardiomediastinal contours: Cardiomegaly. Bones: No acute osseous abnormality. IMPRESSION: Cardiomegaly with CHF.
[2025-01-11] MEDS: docusate sod 100mg capsule PO SCH (08:00)
[2025-01-11] MEDS ORDERED: K and/or MAG REPLACEMENT MC SCH (08:00)
[2025-01-11] MEDS ORDERED: potassium Cl 40MEQ/1/2NS 520ml 520 ML IV PRN (08:45)
[2025-01-11] MEDS: ondansetron/PF 4mg/2ml inj IV PRN (10:14)
[2025-01-11] MEDS: HYDROcodone/acetaminophen 5mg/325mg tablet PO PRN (10:15)
[2025-01-11] MEDS: potassium Cl 40MEQ/1/2NS 520ml 520 ML IV PRN (10:21)
[2025-01-11] MEDS: ringers solution, lacted 1,000 ML IV SCH ×2 (10:29→18:59)
[2025-01-11] MEDS ORDERED: ondansetron/PF 4mg/2ml inj IV PRN (11:10)
[2025-01-11] MEDS ORDERED: fentaNYL/PF 50MCG/1 ML 2ML syringe IV PRN ×2 (11:10)
[2025-01-11] MEDS ORDERED: enalaprilat 1.25mg/ml 2ml vial IV PRN (11:10)
[2025-01-11] MEDS ORDERED: morphine 4 MG/ML inj SYRINge IV PRN ×2 (11:10)
[2025-01-11] MEDS ORDERED: labetalol 20mg/4ml (5mg/ml) syringe IV PRN (11:10)
[2025-01-11] MEDS ORDERED: phenylephrine 10mg/ml inj. ONE (12:28)
[2025-01-11] MEDS ORDERED: ePHEDrine 50MG/ML INJ. ONE (12:28)
[2025-01-11] MEDS ORDERED: desflurane 240ml liquid inh. IH ONE (12:28)
[2025-01-11] MEDS ORDERED: midazolam 1 mg/ML 2ml injection ONE (12:33)
[2025-01-11] MEDS ORDERED: fentaNYL/PF 50MCG/1 ML 2ML syringe ONE (12:33)
[2025-01-11] MEDS ORDERED: ondansetron/PF 4mg/2ml inj ONE (12:44)
[2025-01-11] MEDS ORDERED: propofol inj 20 ML IV ONE (12:44)
[2025-01-11] MEDS ORDERED: dexamethasone sod phosphate 4mg/ml inj. ONE (12:44)
[2025-01-11] MEDS ORDERED: BUPIVAcaine 2.5mg/ml inj 50ml vial (contains preservative) ONE (13:03)
[2025-01-11] MEDS ORDERED: acetaminophen 1,000mg/100ml IV 100 ML IV ONE (13:07)
--- NOTE | 2025-01-11 13:33 | CONSULTATION REPORT ---
History of Present Illness Providers to CC ~ Reason for Admit\Admit Dx: Right hip fracture Refering MD: Raul OSWALD History of Present Illness The patient is a 84-year-old woman who suffered a fall off a curb yesterday injuring her right hip. She was seen in [facility] and transferred here because of medical fragility. She was diagnosed with a right hip fracture. Past medical history hyperthyroidism atrial fibrillation on Eliquis coronary artery disease congestive heart failure with an EF of 15-20% Graves disease kidney stones left bundle branch block prior pneumonia SVT UTIs hypothyroidism hyperthyroidism cardiomyopathy. SVT Allergies: Coded Allergies: aspirin (Verified Allergy, Unknown, 01/11/25) Uncoded Allergies: MRI DYE (Allergy, Unknown, 04/28/18) Home Medications Home Medications Active Reported Ferrous Sulfate* (Ferrous Sulfate) 325 Mg Tablet 1 Tab PO DAILY Lisinopril* (Lisinopril) 40 Mg Tablet 1 Tab PO DAILY 30 Days Eye Health Adult 50+ Softgel (Antiox #11/Om3/Dha/Epa/Lut/Mar) 250 Mg (90 Mg-160 Mg)-5 Mg-1 Mg Capsule Calcium Citrate 250 Mg Calcium Tablet 1 Tab PO DAILY 30 Days Carvedilol 12.5 Mg Tablet 1 Tab PO BID Probiotic Formula Capsule (Bacillus Coagulans/Inulin) 1 Each Capsule Eliquis (Apixaban) 5 Mg Tablet 1 Tab PO BID Cordarone (Amiodarone HCl) 200 Mg Tablet 1 Tab PO DAILY Levothyroxine Sodium 125 Mcg Tablet 1 Tab PO DAILY Past Family History Family History: Cardiomyopathy FATHER, , Age: 75, Cause: Old age FH: COPD (chronic obstructive pulmonary disease) MOTHER, , Age: 79, Cause: Old age Physical Exam Last Vital Signs Recorded: Temperature: 96.9, Source: Temporal, Heart Rate: 61, Respiratory Rate: 16, BP: 136/60, Pulse Oximetry: 98, Weight: 57.600 General Appearance: alert, mild distress EENT: PERRL/EOMI Neck: normal inspection Extremities The right hip area shows no skin abrasions or bruising. There is tenderness at the lateral hip and groin area on the right side. There is no tenderness in the distal thigh knee leg or foot. She is moving her toes well. He has no obvious shortening or malrotation. Capillary refill is good distally. Pelvis is stable and orthopedic exam is otherwise normal Results Results/Orders Results/Orders The x-rays show a nondisplaced intertrochanteric fracture of the right hip Diagram Lab Result Diagram: 01/11/2513401/11/25134 Assessment/Plan Problems/Diagnosis: (1) Intertrochanteric fracture of right femur Additional Plan Stabilization is indicated to prevent further fracture. I discussed with the patient's need for surgery and recommended open reduction internal fixation with intramedullary device. She understands and agrees to proceed. Surgery will be done as soon as OR time can be made available. Problem Qualifiers (1) Intertrochanteric fracture of right femur: Qualified Codes: S72.144A - Nondisplaced intertrochanteric fracture of right femur, initial encounter for closed fracture NITIN DEUTSCH Jr., MD Jan 11, 2025 13:32
--- NOTE | 2025-01-11 13:36 | OPERATIVE REPORT ---
Operative Report Providers to ~ Date of Procedure: Jan 11, 2025 Pre-Operative Diagnosis: RIGHT HIP FRACTURE Post-Operative Diagnosis Right hip intertrochanteric fracture, closed Procedure Performed Open reduction internal fixation of right hip intertrochanteric fracture with the intramedullary device Surgeon: Forest Hester MD Television Installer None Anesthesiologist: Cornell Grimm Type of Anesthesia: General Findings: Prosthetics\Implants used: Pat Affixus nail 9 mm x 340 mm with 95 mm hip screw Estimated Blood Loss: 50 mL Specimen Removed: None Description of Procedure: The patient is a 84-year-old woman who suffered a mechanical fall yesterday. She was diagnosed with a intertrochanteric fracture of the right hip. Surgery is indicated to stabilize fracture and improve ambulation. Risks and benefits were discussed with the patient some of which include but are not limited to infection, bleeding, nerve or vessel damage, blood clots and even . She agreed to proceed. She was given an anesthetic in the operating room and placed on the operating table. The right hip and leg were prepped and draped in usual manner. Fluoro was brought in and used to confirm reduction of the fracture. An incision was made superior to the greater trochanter and a guide pin was advanced under fluoro from the tip of the trochanter down the shaft of the femur. This was followed by over drilling and then placement of the nail which had been previously measured. The 2nd incision was made over the lateral thigh for the compression screw. A guide pin was advanced up through the lateral femur into the femoral head and checked under fluoro. Measurements were obtained and over drilling was done followed by placement of the compression hip screw. The guide pin and insertion guide were removed. Fluoro images were obtained and saved. The incisions were irrigated and closed in layers. A sterile dressing was then applied. She was taken to the recovery room in stable condition after extubation. She tolerated the procedure well. Counts repoted as correct: Yes FOREST HESTER Jr., MD Jan 11, 2025 13:36
[2025-01-11] MEDS ORDERED: DOBUTamine-DoBUTrex 500mg/D5W 250 ML IV PRN ×2 (13:45→15:25)
[2025-01-11] MEDS: DOBUTamine-DoBUTrex 500mg/D5W 250 ML IV PRN (13:53)
[2025-01-11] MEDS: albumin (Human) 5% 250ml 250 ML IV ONE ×2 (15:12→15:13)
--- NOTE | 2025-01-11 16:15 | CONSULTATION REPORT - RESIDENT ---
Consult Providers to CC Resident Creating Document: KENAN CHUNG BARRINGTON ALEJANDRO History of Present Illness Reason for Admit\Complaint: Right hip fracture History of Present Illness Patient has been transferred postoperatively after having an open reduction internal fixation of right intertrochanteric fracture by Dr. Hester. The patient is drowsy, somnolent from the anesthesia and hence history was derived from the patient's medical records. 84 years old female with past medical history of heart failure with the ejection fraction of about 15-20%, AFib, CKD, hypertension, hypothyroidism was transferred from [facility] for the management of right hip fracture. The patient was reported to have a mechanical fall yesterday around 7:00 p.m. while stepping on a curb and fell on her right hip was followed by severe pain and inability to ambulate. The on-call orthopedic surgeon was consulted and the patient had an open reduction internal fixation of the right hip intertrochanteric fracture with intramedullary device. The patient was started on dobutamine drip in view of her significant low ejection fraction and is transferred to the ICU for further care and monitoring. Allergies: Coded Allergies: aspirin (Verified Allergy, Unknown, 01/11/25) Uncoded Allergies: MRI DYE (Allergy, Unknown, 04/28/18) Home Medications Home Medications Active Reported Ferrous Sulfate* (Ferrous Sulfate) 325 Mg Tablet 1 Tab PO DAILY Lisinopril* (Lisinopril) 40 Mg Tablet 1 Tab PO DAILY 30 Days Eye Health Adult 50+ Softgel (Antiox #11/Om3/Dha/Epa/Lut/Mar) 250 Mg (90 Mg-160 Mg)-5 Mg-1 Mg Capsule 1 Cap PO DAILY Calcium Citrate 250 Mg Calcium Tablet 1 Tab PO DAILY 30 Days Carvedilol 12.5 Mg Tablet 1 Tab PO BID Probiotic Formula Capsule (Bacillus Coagulans/Inulin) 1 Each Capsule Eliquis (Apixaban) 5 Mg Tablet 1 Tab PO BID Cordarone (Amiodarone HCl) 200 Mg Tablet 1 Tab PO DAILY Levothyroxine Sodium 125 Mcg Tablet 1 Tab PO DAILY Past Medical History Past Medical History Atrial fibrillation Heart failure with reduced EF Hypertension Hypothyroidism Chronic kidney disease Biventricular pacemaker/ICD Past Surgical History Surgical History Comment Biventricular pacemaker/ICD Cholecystectomy Right inner ear surgery Family History Family History: Cardiomyopathy FATHER, , Age: 75, Cause: Old age FH: COPD (chronic obstructive pulmonary disease) MOTHER, , Age: 79, Cause: Old age Past Social History Social History Comment Lives at home with the has been. Retired Nonsmoker No alcohol use reported. ROS ROS Not able to complete a review of systems as the patient is somnolent due to anesthesia. Exam Vitals: Vital Signs Date Time Temp Pulse Resp B/P (MAP) Pulse Ox O2 Delivery O2 Flow Rate FiO2 01/11/25 16:00 65 12 134/73 (93) 97 Mask 4.0 01/11/25 15:13 97.9 General: General: Elderly woman, thin. In no acute distress. Somnolent. HEENT: Conjunctiva pink, Sclera clear, Mucus Membranes moist. Neck: Supple without masses and tenderness. Resp: Unlabored. Lungs clear to auscultation bilaterally. Heart: Irregularly irregular rate and rhythm, normal S1 and S2 without murmur, rub or gallop. Abdomen: Soft and non tender no organomegaly Extremities: No cyanosis,clubbing or edema. Right hip surgical dressing. Skin: Warm and Dry. Neurology: Not able to assess neurological examination the patient is drowsy and somnolent under anesthesia. Diagnostic Data Last Recorded Lab Results: 01/11/2513401/11/25134 Diagnostic Data: Laboratory Tests Test 01/11/25 01:35 Prothrombin Time 11.9 SECONDS (9.0-12.0) INR International Normalized Ratio 1.2 INR Activated Partial Thromboplast Time 27 SECONDS (22-32) Coagulation Comments Additional Plan Right intertrochanteric hip fracture Mechanical fall Status post open reduction internal fixation with intramedullary device The surgery was done by Dr. Hester. Patient tolerated the procedure well. There were no complications reported. Continue close monitoring of the patient's vitals. Conservative management with the fluids as the patient has a heart failure with a significantly reduced ejection fraction. Pain management with IV morphine and oral [place] as needed for pain. Patient is currently on 6 L oxygen via non-rebreather mask. Wean the patient off of oxygen with a goal oxygen saturation greater than 92%. PT to evaluate once the orthopedic surgeon clears the patient. DVT prophylaxis with the Eliquis 5 mg b.i.d. Heart failure with reduced ejection fraction Not in acute exacerbation The patient's records reported that the patient has a ejection fraction of 15- 20%. Does not appear to be fluid overloaded. ProBNP 35352. Follow up with a repeat echocardiography. She was on dobutamine drip at 10 mics per kg per minute. Currently titrated down to 2 mics per kg per minute. Restart the patient's home GDMT as tolerated. She is started on carvedilol 12.5 mg p.o. b.i.d., lisinopril 40 mg p.o. daily. Continue close monitoring of the patient's vitals. Chronic atrial fibrillation Biventricular pacemaker/ICD History of two on successful ablation. A heart rate is currently controlled. Restarted on Eliquis, amiodarone and carvedilol. Continue telemetry monitoring. CKD, stage III Baseline unknown. Current creatinine is 1.47 and BUN is 25. Continue to monitor renal function test closely. Severe hypokalemia Replace as per protocol. We will follow up with a repeat electrolytes. Hypertension Hypothyroidism TSH within normal limits The patient's blood patient also well-controlled. Continue close monitoring of the patient's vitals. CODE STATUS: Full code DVT prophylaxis: Eliquis/SCDs GI prophylaxis: None Disposition: The patient underwent open reduction internal fixation of right intertrochanteric hip fracture today by Dr. Hester. Continue monitoring the patient in the intensive care unit. We will plan to wean the patient off of dobutamine drip and transfer her to PCU once he is stable. Kenan Chung MD Internal Medicine Resident, PGY-3 Date of Service: Jan 11, 2025 Billing Provider: KALIA BRYANT MD,KENAN ALEJANDRO, RES Jan 11, 2025 16:15
--- NOTE | 2025-01-11 16:40 | RADIOLOGY REPORT ---
Indication: postop RIGHT Technique: DI HIP UNILATERAL 2 VIEWSHIP 2VWS Comparison: None FINDINGS/IMPRESSION: Right femur intramedullary morales and intertrochanteric screw. Associated postoperative changes including surrounding soft tissue emphysema, edema. [id number] degenerate changes bilateral hips.
[2025-01-11 17:58] LABS: MEAN PLATELET VOLUME 10.2 FL (7.4-10.4); RED CELL DISTRIBUTION WIDTH 17.5 % (11.5-14.5)
[2025-01-11 18:11] LABS: CREATININE 1.60 MG/DL (0.40-0.90); PHOSPHORUS 4.0 MG/DL (2.3-4.5); TOTAL CARBON DIOXIDE 29.3 MMOL/L (24-32); eCRCL 23 ML/MIN; eGFR 31 ML/MIN
[2025-01-11] MEDS: K and/or MAG REPLACEMENT MC SCH (19:01)
[2025-01-12] VITALS (21 sets, daily range): BP systolic 105–157; BP diastolic 63–95; PULSE 61–70; RESP 15–21; TEMP 97.3–97.9; O2SAT 93–98
[2025-01-12] MEDS: DOBUTamine-DoBUTrex 500mg/D5W 250 ML IV SCH (00:05)
[2025-01-12 06:33] LABS: MEAN PLATELET VOLUME 9.9 FL (7.4-10.4); RED CELL DISTRIBUTION WIDTH 16.8 % (11.5-14.5)
[2025-01-12 07:08] LABS: CREATININE 1.53 MG/DL (0.40-0.90); PRO BRAIN NATRIURETIC PEPTIDE 16007 PG/ML (0-450); TOTAL CARBON DIOXIDE 27.4 MMOL/L (24-32); eCRCL 24 ML/MIN; eGFR 32 ML/MIN
--- NOTE | 2025-01-12 15:47 | PROGRESS NOTE ---
Daily Progress Note Providers to CC No new complaint today, pain well controlled, ~ Central Line/PICC still needed: No Vivas-Non Protocol Vivas Indications Met/Not Met: F/C Indications Not Met Antibiotic Timeout Antibiotic Ordered?: Yes MRSA Education MRSA Education Provided to pt: Yes Objective Vital Signs Date Time Temp Pulse Resp B/P (MAP) Pulse Ox O2 Delivery O2 Flow Rate FiO2 01/12/25 11:00 97.3 61 15 107/63 (78) 96 Nasal Cannula 2.0 01/11/25 21:25 28 Vital signs, stable ,afebrile. Pulse Oximetry reflects adequate oxygenation. On 2 L oxygen nasal cannula General: well developed, well nourished. Awake , alert, and oriented x4, resting comfortably in the bed, in no acute distress . Skin: Warm, dry, no pallor, no rash or petechiae. HEENT: Atraumatic, normocephalic, EOMI, anicteric sclera B; pink conjunctiva; PERRLA, normal oropharynx, moist oral and nasal mucosa. Tympanic membrane , nose , throat clear. Neck: Trachea midline. Supple, full range of motion, no JVD, bruit , hepatojugular reflex , lymphadenopathy or masses, or other lesions Cardiac: Regular rhythm, regular rate no murmurs, rubs, or gallops. Normal S1 and S2, no S3 noticed. PMI is normal. Respiratory: Equal breath sounds bilaterally, no tachypnea; lungs clear to auscultation bilaterally, no wheezing ,rub or rales, or crackles. Chest wall is symmetric and without deformity. No signs of trauma. Chest wall is nontender. No signs of respiratory distress. Resonance is normal upon percussion bilaterally. Gastrointestinal: Abdomen symmetric, non-distended, soft, non-tender, normal bowel sounds x4 quadrant, normoactive, no hepatosplenomegaly , no masses , no bruit, no flank pain bilaterally. No voluntary guarding, rebound, or rigidity. No tenderness to percussion. No pulsatile masses. Equal femoral pulses. No Mccall's sign or McBurney point tenderness. Back; no CVA tenderness bilaterally, no deformities. Neck and back are without deformity as well. No tenderness noted on palpation of the spinous processes. Spinous processes are midline. Cervical, thoracic, and lumbar locally, dressing clean dry intact neurovascular grossly intact Musculoskeletal: Extremities, normal range of motion, non-tender, muscle strength 5/5 x 4. Negative Homans signs bilaterally on lower extremity. Distal pulses full symmetrical, no clubbing, cyanosis , edema. Neurological: Speech is clear, alert, and oriented x 4. No motor or sensory deficit, deep tendon reflexes normal, cerebellar intact. Cranial nerves II-XII intact. Psych: Alert and or appropriate, normal affect. Vascular: Good distal pulses, which are equal x4; capillary refill less than 2 seconds. Lymphatic, no lymphadenopathy. Result Diagram: 01/12/2518 01/12/25617 Coagulation Studies Laboratory Tests Test 01/11/25 01:35 Prothrombin Time 11.9 SECONDS (9.0-12.0) INR International Normalized Ratio 1.2 INR Activated Partial Thromboplast Time 27 SECONDS (22-32) Coagulation Comments Problem\Assessment\Plan Plan Right intertrochanteric hip fracture Mechanical fall Status post open reduction internal fixation with intramedullary device The surgery was done by Dr. Hester. Patient tolerated the procedure well. There were no complications reported. Continue close monitoring of the patient's vitals. Conservative management with the fluids as the patient has a heart failure with a significantly reduced ejection fraction. Pain management with IV morphine and oral [place] as needed for pain. Patient is currently on 6 L oxygen via non-rebreather mask. Wean the patient off of oxygen with a goal oxygen saturation greater than 92%. PT to evaluate once the orthopedic surgeon clears the patient. DVT prophylaxis with the Eliquis 5 mg b.i.d. Heart failure with reduced ejection fraction Not in acute exacerbation The patient's records reported that the patient has a ejection fraction of 15- 20%. Does not appear to be fluid overloaded. ProBNP 50341. Follow up with a repeat echocardiography. She was on dobutamine drip at 10 mics per kg per minute. Currently titrated down to 2 mics per kg per minute. Restart the patient's home GDMT as tolerated. She is started on carvedilol 12.5 mg p.o. b.i.d., Farxiga, Aldactone, lisinopril 40 mg p.o. daily. Continue close monitoring of the patient's vitals. Chronic atrial fibrillation Biventricular pacemaker/ICD History of two on successful ablation. A heart rate is currently controlled. Restarted on Eliquis, amiodarone and carvedilol. Continue telemetry monitoring. CKD, stage III Baseline unknown. Current creatinine is 1.47 and BUN is 25. Continue to monitor renal function test closely. Severe hypokalemia Replace as per protocol. We will follow up with a repeat electrolytes. Hypertension Hypothyroidism TSH within normal limits The patient's blood patient also well-controlled. Continue close monitoring of the patient's vitals. CODE STATUS: Full code DVT prophylaxis: Eliquis/SCDs Sepsis Screening Reassessment Date: Jan 12, 2025 Date of Service: Jan 12, 2025 Billing Provider: FIDEL MERRITT MD Common Visit Codes: [id number] INP/OBS CARE(HIGH) FIDEL MERRITT MD Jan 12, 2025 15:47
[2025-01-13] VITALS (7 sets, daily range): BP systolic 109–167; BP diastolic 63–93; PULSE 62–69; RESP 15–20; TEMP 97.4–97.9; O2SAT 90–99
[2025-01-13 07:18] LABS: MEAN PLATELET VOLUME 10.2 FL (7.4-10.4); RED CELL DISTRIBUTION WIDTH 17.4 % (11.5-14.5)
[2025-01-13 07:36] LABS: CREATININE 1.61 MG/DL (0.40-0.90); PRO BRAIN NATRIURETIC PEPTIDE 14309 PG/ML (0-450); TOTAL CARBON DIOXIDE 30.5 MMOL/L (24-32); eCRCL 23 ML/MIN; eGFR 30 ML/MIN
[2025-01-13] MEDS: EMPAGLIFLOZIN 10 MG TABLET PO SCH (09:37)
--- NOTE | 2025-01-13 18:58 | CARDIOLOGY REPORT ---
APPROVED REPORT EXAM: Comprehensive 2D, Doppler, and color-flow Echocardiogram. Patient Location: 4018 A Blood Pressure: 152/87 mmHg Heart Rate: 61 bpm Rhythm: PACED Indications PRE-OP HIP REPAIR ELEVATED PROBNP (30810) ATRIAL FIBRILLATION HFrEF HYPERTENSION Carpenter Mold: Andrea Temple DO Previous echo: none available 2D Dimensions RVDd 5.2 cm IVSd 1.1 (0.7-1.1cm) LVDd 4.9 cm PWd 1.0 (0.7-1.1cm) IVSs 1.5 (0.8-1.2cm) LVDs 4.3 (2.5-4.0cm) PWs 1.0 (0.8-1.2cm) LVOT Diameter 1.80 (1.8-2.4cm) LVEF(%) 27.7 (>50%) Ao Asc Diam. 2.61 cm IVC 20.66 mm FS (%) 12.9 % SV 31.5 ml CO 0.3 L/min M-Mode Dimensions Left Atrium(MM) 6.11 (2.5-4.0cm) IVSd 1.24 (0.7-1.1cm) LVDd 3.77 (4.0-5.6cm) Aortic Root 2.49 (2.2-3.7cm) PWd 1.21 (0.7-1.1cm) Aortic Cusp Exc 1.54 (1.5-2.0cm) IVSs 1.24 cm MV EPSS 1.1 (<0.5cm) LVDs 3.66 (2.0-3.8cm) FS (%) 3 % PWs 1.57 cm ESV(Teich) 56.7 ml Aortic Valve AoV Peak Eddie. 200.0 cm/s AoV VTI 28.2 cm AO Peak GR. 16.0 mmHg AO Mean GR. 8 mmHg LVOT VTI 29.19 cm LVOT Peak Eddie. 174.3 cm/s LETICIA(VTI)/BSA 2.62 cm2/m2 LETICIA (VTI) 2.62 cm2 Mitral Valve MV Peak Gr. 6 mmHg MV PHT 52 ms MVA (PHT) 4.23 cm2 MV VMax 125.5 cm/s Tricuspid Valve TR P. Velocity 391 cm/s RAP ESTIMATE 10 mmHg TR Peak Gr. 61 mmHg RVSP 71 mmHg LEFT VENTRICLE Normal LV size and severely reduced function. Mild concentric hypertrophy. LVEF is 15-20%. RIGHT VENTRICLE RV is severely dilated with normal systolic function. RVSP is estimated at 71 mmHg. Pacemaker wire in right heart. ATRIA Severe biatrial dilation. IAS appears thin and minimally mobile with no obvious shunt detected. AORTIC VALVE Trileaflet AV appears mildly sclerotic without stenosis or insufficiency. MITRAL VALVE Moderate MV annular calcification without significant stenosis. Moderate regurgitation. TRICUSPID VALVE TV appears structurally normal with moderate multijet regurgitation. PULMONIC VALVE Normal PV without stenosis, physiologic insufficiency. GREAT VESSELS Aortic root is normal in size. Ascending aorta is normal in size. IVC is normal in size and collapses greater than 50% with inspiration. PERICARDIUM Normal pericardium. No effusion. Other Information Study Quality: Adequate Conclusion Normal LV size and severely reduced function. Mild concentric hypertrophy. LVEF is 15-20%. RV is severely dilated with normal systolic function. RVSP is estimated at 71 mmHg. Pacemaker wire in right heart. Severe biatrial dilation. IAS appears thin and minimally mobile with no obvious shunt detected. Trileaflet AV appears mildly sclerotic without stenosis or insufficiency. Moderate MV annular calcification without significant stenosis. Moderate regurgitation. TV appears structurally normal with moderate multijet regurgitation. Normal pericardium. No effusion.
--- NOTE | 2025-01-13 20:08 | PROGRESS NOTE ---
Daily Progress Note Providers to CC No new complaint , pain well controlled resting comfortably in the bed Central Line/PICC still needed: No Vivas-Non Protocol Vivas Indications Met/Not Met: F/C Indications Not Met Antibiotic Timeout Antibiotic Ordered?: Yes MRSA Education MRSA Education Provided to pt: Yes Subjective As above Objective Vital Signs Date Time Temp Pulse Resp B/P (MAP) Pulse Ox O2 Delivery O2 Flow Rate FiO2 01/13/25 15:00 97.4 62 16 109/63 (78) 91 Room Air 01/13/25 10:00 2.0 01/11/25 21:25 28 Vital signs, stable ,afebrile. Pulse Oximetry reflects adequate oxygenation on 2 L oxygen nasal cannula General: well developed, well nourished. Awake , alert, and oriented x4, resting comfortably in the bed, in no acute distress . Skin: Warm, dry, no pallor, no rash or petechiae. HEENT: Atraumatic, normocephalic, EOMI, anicteric sclera B; pink conjunctiva; PERRLA, normal oropharynx, moist oral and nasal mucosa. Tympanic membrane , nose , throat clear. Neck: Trachea midline. Supple, full range of motion, no JVD, bruit , hepatojugular reflex , lymphadenopathy or masses, or other lesions Cardiac: Regular rhythm, regular rate no murmurs, rubs, or gallops. Normal S1 and S2, no S3 noticed. PMI is normal. Respiratory: Equal breath sounds bilaterally, no tachypnea; lungs clear to auscultation bilaterally, no wheezing ,rub or rales, or crackles. Chest wall is symmetric and without deformity. No signs of trauma. Chest wall is nontender. No signs of respiratory distress. Resonance is normal upon percussion bilaterally. Gastrointestinal: Abdomen symmetric, non-distended, soft, non-tender, normal bowel sounds x4 quadrant, normoactive, no hepatosplenomegaly , no masses , no bruit, no flank pain bilaterally. No voluntary guarding, rebound, or rigidity. No tenderness to percussion. No pulsatile masses. Equal femoral pulses. No Mccall's sign or McBurney point tenderness. Back; no CVA tenderness bilaterally, no deformities. Neck and back are without deformity as well. No tenderness noted on palpation of the spinous processes. Spinous processes are midline. Cervical, thoracic, and lumbar paraspinal muscles are not tender and are without spasm. Locally, dressing clean dry intact Musculoskeletal: Extremities, normal range of motion, non-tender, muscle strength 5/5 x 4. Negative Homans signs bilaterally on lower extremity. Distal pulses full symmetrical, no clubbing, cyanosis , edema. Neurological: Speech is clear, alert, and oriented x 4. No motor or sensory deficit, deep tendon reflexes normal, cerebellar intact. Cranial nerves II-XII intact. Psych: Alert and or appropriate, normal affect. Vascular: Good distal pulses, which are equal x4; capillary refill less than 2 seconds. Lymphatic, no lymphadenopathy. Result Diagram: 01/13/25 0641 01/13/2541 Coagulation Studies Laboratory Tests Test 01/11/25 01:35 Prothrombin Time 11.9 SECONDS (9.0-12.0) INR International Normalized Ratio 1.2 INR Activated Partial Thromboplast Time 27 SECONDS (22-32) Coagulation Comments Problem\Assessment\Plan Assessment/ Plan Right intertrochanteric hip fracture Mechanical fall Status post open reduction internal fixation with intramedullary device The surgery was done by Dr. Hester. Patient tolerated the procedure well. There were no complications reported. Continue close monitoring of the patient's vitals. Conservative management with the fluids as the patient has a heart failure with a significantly reduced ejection fraction. Pain management with IV morphine and oral [place] as needed for pain. Patient is currently on 6 L oxygen via non-rebreather mask. Wean the patient off of oxygen with a goal oxygen saturation greater than 92%. PT to evaluate once the orthopedic surgeon clears the patient. DVT prophylaxis with the Eliquis 5 mg b.i.d. Heart failure with reduced ejection fraction Not in acute exacerbation The patient's records reported that the patient has a ejection fraction of 15- 20%. Does not appear to be fluid overloaded. ProBNP 94116. Follow up with a repeat echocardiography. She was on dobutamine drip at 10 mics per kg per minute. Currently titrated down to 2 mics per kg per minute. Restart the patient's home GDMT as tolerated. She is started on carvedilol 12.5 mg p.o. b.i.d., Farxiga, Aldactone, lisinopril 40 mg p.o. daily. Continue close monitoring of the patient's vitals. Chronic atrial fibrillation Biventricular pacemaker/ICD History of two on successful ablation. A heart rate is currently controlled. Restarted on Eliquis, amiodarone and carvedilol. Continue telemetry monitoring. CKD, stage III Baseline unknown. Current creatinine is 1.47 and BUN is 25. Continue to monitor renal function test closely. Severe hypokalemia Replace as per protocol. We will follow up with a repeat electrolytes. Hypertension Hypothyroidism TSH within normal limits The patient's blood patient also well-controlled. Continue close monitoring of the patient's vitals. CODE STATUS: Full code DVT prophylaxis: Eliquis/SCDs Sepsis Screening Reassessment Date: Jan 13, 2025 Date of Service: Jan 13, 2025 Billing Provider: FIDEL MERRITT MD Common Visit Codes: [id number] INP/OBS CARE(HIGH) FIDEL MERRITT MD Jan 13, 2025 20:08
[2025-01-13] MEDS: HYDROcodone/acetaminophen 10/325mg tab PO PRN (22:20)
[2025-01-14 02:00] VITALS: BP 109/62; PULSE 64; RESP 16; O2SAT 92
[2025-01-14] MEDS: polyethylene glycol 3350 17gm powd pack PO PRN (03:43)
[2025-01-14 06:00] VITALS: BP 109/67; PULSE 60; RESP 16; TEMP 97.2; O2SAT 93
[2025-01-14 06:35] LABS: MEAN PLATELET VOLUME 10.0 FL (7.4-10.4); RED CELL DISTRIBUTION WIDTH 17.0 % (11.5-14.5)
[2025-01-14 06:44] LABS: CREATININE 1.47 MG/DL (0.40-0.90); TOTAL CARBON DIOXIDE 30.1 MMOL/L (24-32); eCRCL 25 ML/MIN; eGFR 34 ML/MIN
[2025-01-14 08:00] VITALS: RESP 16; O2SAT 90
[2025-01-14 11:00] VITALS: BP 122/66; PULSE 66; RESP 16; TEMP 97.6; O2SAT 94
[2025-01-14 20:00] VITALS: RESP 15; O2SAT 97
--- NOTE | 2025-01-14 20:11 | PROGRESS NOTE ---
Daily Progress Note Providers to CC ~ feels better today pain well controlled better sleep Central Line/PICC still needed: No Vivas-Non Protocol Vivas Indications Met/Not Met: F/C Indications Not Met Antibiotic Timeout Antibiotic Ordered?: No MRSA Education MRSA Education Provided to pt: No Subjective As above Objective Vital Signs Date Time Temp Pulse Resp B/P (MAP) Pulse Ox O2 Delivery O2 Flow Rate FiO2 01/14/25 11:00 97.6 66 16 122/66 (84) 94 Nasal Cannula 2.0 01/11/25 21:25 28 Vital signs, stable ,afebrile. Pulse Oximetry reflects adequate oxygenation. 2 L oxygen nasal cannula General: well developed, well nourished. Awake , alert, and oriented x4, resting comfortably in the bed, in no acute distress . Skin: Warm, dry, no pallor, no rash or petechiae. HEENT: Atraumatic, normocephalic, EOMI, anicteric sclera B; pink conjunctiva; PERRLA, normal oropharynx, moist oral and nasal mucosa. Tympanic membrane , nose , throat clear. Neck: Trachea midline. Supple, full range of motion, no JVD, bruit , hepatojugular reflex , lymphadenopathy or masses, or other lesions Cardiac: Regular rhythm, regular rate no murmurs, rubs, or gallops. Normal S1 and S2, no S3 noticed. PMI is normal. Respiratory: Equal breath sounds bilaterally, no tachypnea; lungs clear to auscultation bilaterally, no wheezing ,rub or rales, or crackles. Chest wall is symmetric and without deformity. No signs of trauma. Chest wall is nontender. No signs of respiratory distress. Resonance is normal upon percussion bilaterally. Gastrointestinal: Abdomen symmetric, non-distended, soft, non-tender, normal bowel sounds x4 quadrant, normoactive, no hepatosplenomegaly , no masses , no bruit, no flank pain bilaterally. No voluntary guarding, rebound, or rigidity. No tenderness to percussion. No pulsatile masses. Equal femoral pulses. No Mccall's sign or McBurney point tenderness. Back; no CVA tenderness bilaterally, no deformities. Neck and back are without deformity as well. No tenderness noted on palpation of the spinous processes. Spinous processes are midline. Cervical, thoracic, and lumbar paraspinal muscles are not tender and are without spasm. Locally, dressing on the hip clean dry intact neurovascular grossly intact Musculoskeletal: Extremities, normal range of motion, non-tender, muscle strength 5/5 x 4. Negative Homans signs bilaterally on lower extremity. Distal pulses full symmetrical, no clubbing, cyanosis , edema. Neurological: Speech is clear, alert, and oriented x 4. No motor or sensory deficit, deep tendon reflexes normal, cerebellar intact. Cranial nerves II-XII intact. Psych: Alert and or appropriate, normal affect. Vascular: Good distal pulses, which are equal x4; capillary refill less than 2 seconds. Lymphatic, no lymphadenopathy. Result Diagram: 01/14/25 0608 01/14/25 0608 Coagulation Studies Laboratory Tests Test 01/11/25 01:35 Prothrombin Time 11.9 SECONDS (9.0-12.0) INR International Normalized Ratio 1.2 INR Activated Partial Thromboplast Time 27 SECONDS (22-32) Coagulation Comments Problem\Assessment\Plan Assessment/ Plan Right intertrochanteric hip fracture Mechanical fall Status post open reduction internal fixation with intramedullary device The surgery was done by Dr. Hester. Patient tolerated the procedure well. There were no complications reported. Continue close monitoring of the patient's vitals. Conservative management with the fluids as the patient has a heart failure with a significantly reduced ejection fraction. Pain management with IV morphine and oral [place] as needed for pain. Patient is currently on 6 L oxygen via non-rebreather mask. Wean the patient off of oxygen with a goal oxygen saturation greater than 92%. PT to evaluate once the orthopedic surgeon clears the patient. DVT prophylaxis with the Eliquis 5 mg b.i.d. Heart failure with reduced ejection fraction Not in acute exacerbation The patient's records reported that the patient has a ejection fraction of 15- 20%. Does not appear to be fluid overloaded. ProBNP 34731. Follow up with a repeat echocardiography. She was on dobutamine drip at 10 mics per kg per minute. Currently titrated down to 2 mics per kg per minute. Restart the patient's home GDMT as tolerated. She is started on carvedilol 12.5 mg p.o. b.i.d., Farxiga, Aldactone, lisinopril 40 mg p.o. daily. Continue close monitoring of the patient's vitals. Chronic atrial fibrillation Biventricular pacemaker/ICD History of two on successful ablation. A heart rate is currently controlled. Restarted on Eliquis, amiodarone and carvedilol. Continue telemetry monitoring. CKD, stage III Baseline unknown. Current creatinine is 1.47 and BUN is 25. Continue to monitor renal function test closely. Severe hypokalemia Replace as per protocol. We will follow up with a repeat electrolytes. Hypertension Hypothyroidism TSH within normal limits The patient's blood patient also well-controlled. Continue close monitoring of the patient's vitals. CODE STATUS: Full code DVT prophylaxis: Eliquis/SCDs Disposition, anticipated discharge to rehab facility in two days Sepsis Screening Reassessment Date: Jan 14, 2025 Date of Service: Jan 14, 2025 Billing Provider: FIDEL MERRITT MD Common Visit Codes: [id number] INP/OBS CARE(HIGH) FIDEL MERRITT MD Jan 14, 2025 20:11
[2025-01-14] MEDS ORDERED: polyethylene glycol 3350 17gm powd pack PO SCH (21:00)
[2025-01-14 22:00] VITALS: BP 125/75; PULSE 61; RESP 15; TEMP 97.9; O2SAT 97
[2025-01-15] VITALS (11 sets, daily range): BP systolic 86–138; BP diastolic 50–85; PULSE 59–71; RESP 13–22; TEMP 97–97.6; O2SAT 90–96
[2025-01-15 08:41] LABS: MEAN PLATELET VOLUME 10.5 FL (7.4-10.4); RED CELL DISTRIBUTION WIDTH 16.4 % (11.5-14.5)
[2025-01-15 09:32] LABS: CREATININE 1.44 MG/DL (0.40-0.90); TOTAL CARBON DIOXIDE 30.1 MMOL/L (24-32); eCRCL 26 ML/MIN; eGFR 35 ML/MIN
--- NOTE | 2025-01-15 18:10 | PROGRESS NOTE ---
Daily Progress Note Providers to CC No new complaint today awaiting transfer to rehab facility ~ Central Line/PICC still needed: No Vivas-Non Protocol Vivas Indications Met/Not Met: F/C Indications Not Met Antibiotic Timeout Antibiotic Ordered?: Yes MRSA Education MRSA Education Provided to pt: Yes Subjective As above Objective Vital Signs Date Time Temp Pulse Resp B/P (MAP) Pulse Ox O2 Delivery O2 Flow Rate FiO2 01/15/25 15:00 97.0 60 13 86/50 (62) 92 Room Air 01/14/25 20:00 0.0 01/11/25 21:25 28 Vital signs, stable ,afebrile. Pulse Oximetry reflects adequate oxygenation. General: well developed, well nourished. Awake , alert, and oriented x4, resting comfortably in the bed, in no acute distress . Skin: Warm, dry, no pallor, no rash or petechiae. HEENT: Atraumatic, normocephalic, EOMI, anicteric sclera B; pink conjunctiva; PERRLA, normal oropharynx, moist oral and nasal mucosa. Tympanic membrane , nose , throat clear. Neck: Trachea midline. Supple, full range of motion, no JVD, bruit , hepatojugular reflex , lymphadenopathy or masses, or other lesions Cardiac: Regular rhythm, regular rate no murmurs, rubs, or gallops. Normal S1 and S2, no S3 noticed. PMI is normal. Respiratory: Equal breath sounds bilaterally, no tachypnea; lungs clear to auscultation bilaterally, no wheezing ,rub or rales, or crackles. Chest wall is symmetric and without deformity. No signs of trauma. Chest wall is nontender. No signs of respiratory distress. Resonance is normal upon percussion bilaterally. Gastrointestinal: Abdomen symmetric, non-distended, soft, non-tender, normal bowel sounds x4 quadrant, normoactive, no hepatosplenomegaly , no masses , no bruit, no flank pain bilaterally. No voluntary guarding, rebound, or rigidity. No tenderness to percussion. No pulsatile masses. Equal femoral pulses. No Mccall's sign or McBurney point tenderness. Back; no CVA tenderness bilaterally, no deformities. Neck and back are without deformity as well. No tenderness noted on palpation of the spinous processes. Spinous processes are midline. Cervical, thoracic, and lumbar paraspinal muscles are not tender and are without spasm. Musculoskeletal: Extremities, normal range of motion, non-tender, muscle strength 5/5 x 4. Negative Homans signs bilaterally on lower extremity. Distal pulses full symmetrical, no clubbing, cyanosis , edema. Locally, dressing clean dry intact Neurological: Speech is clear, alert, and oriented x 4. No motor or sensory deficit, deep tendon reflexes normal, cerebellar intact. Cranial nerves II-XII intact. Psych: Alert and or appropriate, normal affect. Vascular: Good distal pulses, which are equal x4; capillary refill less than 2 seconds. Lymphatic, no lymphadenopathy. Result Diagram: 01/15/2572101/15/2522 Coagulation Studies Laboratory Tests Test 01/11/25 01:35 Prothrombin Time 11.9 SECONDS (9.0-12.0) INR International Normalized Ratio 1.2 INR Activated Partial Thromboplast Time 27 SECONDS (22-32) Coagulation Comments Problem\Assessment\Plan Assessment/ Plan Right intertrochanteric hip fracture Mechanical fall Status post open reduction internal fixation with intramedullary device The surgery was done by Dr. Hester. Patient tolerated the procedure well. There were no complications reported. Continue close monitoring of the patient's vitals. Conservative management with the fluids as the patient has a heart failure with a significantly reduced ejection fraction. Pain management with IV morphine and oral [place] as needed for pain. Patient is currently on 6 L oxygen via non-rebreather mask. Wean the patient off of oxygen with a goal oxygen saturation greater than 92%. PT to evaluate once the orthopedic surgeon clears the patient. DVT prophylaxis with the Eliquis 5 mg b.i.d. Heart failure with reduced ejection fraction in acute exacerbation The patient's records reported that the patient has a ejection fraction of 15- 20%. Does not appear to be fluid overloaded. ProBNP 77415. Follow up with a repeat echocardiography. She was on dobutamine drip at 10 mics per kg per minute. Currently titrated down to 2 mics per kg per minute. Restart the patient's home GDMT as tolerated. She is started on carvedilol 12.5 mg p.o. b.i.d., Farxiga, Aldactone, lisinopril 40 mg p.o. daily. Continue close monitoring of the patient's vitals. Chronic atrial fibrillation Biventricular pacemaker/ICD History of two on successful ablation. A heart rate is currently controlled. Restarted on Eliquis, amiodarone and carvedilol. Continue telemetry monitoring. CKD, stage III Baseline unknown. Current creatinine is 1.47 and BUN is 25. Continue to monitor renal function test closely. Severe hypokalemia Replace as per protocol. We will follow up with a repeat electrolytes. Hypertension Hypothyroidism TSH within normal limits The patient's blood patient also well-controlled. Continue close monitoring of the patient's vitals. CODE STATUS: Full code DVT prophylaxis: Eliquis/SCDs Disposition, anticipated discharge to rehab facility in two days Sepsis Screening Reassessment Date: Jan 15, 2025 Date of Service: Jan 15, 2025 Billing Provider: FIDEL MERRITT MD Common Visit Codes: [id number] INP/OBS CARE(HIGH) FIDEL MERRITT MD Jan 15, 2025 18:10
[2025-01-16 05:00] VITALS: BP 154/84; PULSE 62; RESP 16; TEMP 97.9; O2SAT 93
[2025-01-16 06:06] LABS: MEAN PLATELET VOLUME 9.8 FL (7.4-10.4); RED CELL DISTRIBUTION WIDTH 16.4 % (11.5-14.5)
[2025-01-16 06:10] LABS: CREATININE 1.45 MG/DL (0.40-0.90); TOTAL CARBON DIOXIDE 33.2 MMOL/L (24-32); eCRCL 26 ML/MIN; eGFR 34 ML/MIN
[2025-01-16 10:00] VITALS: BP 101/57; PULSE 60; RESP 16; TEMP 97.5; O2SAT 94
[2025-01-16] MEDS: magnesium hydroxide 30ml (MOM) UD suspension PO PRN (11:04)
[2025-01-16 12:35] VITALS: RESP 16
--- NOTE | 2025-01-16 18:29 | DISCHARGE SUMMARY ---
Discharge Summary Providers to No new complaint today ready to be discharged to rehab facility ~ Discharge Summary Assessment Mechanical fall ground level Side Hip fracture Atrial fibrillation Systolic CHF , chronic Heart failure with reduced EF Hypertension Hypothyroidism Chronic kidney disease Biventricular pacemaker/ICD Admission Diagnosis: RIGHT HIP FRACTURE Admission Diagnosis Comment: Mechanical fall ground level Side Hip fracture Atrial fibrillation Systolic CHF , chronic Heart failure with reduced EF Hypertension Hypothyroidism Chronic kidney disease Biventricular pacemaker/ICD Hospital Course DATE OF ADMISSION: January 11, 2025 DATE OF DISCHARGE: January 16, 2025 Discharge Diagnosis\Comment: Mechanical fall ground level Side Hip fracture, repaired ORIF Atrial fibrillation Systolic CHF , chronic Heart failure with reduced EF Hypertension Hypothyroidism Chronic kidney disease Biventricular pacemaker/ICD Operations\Procedures: Right hip fracture ORIF Consultants: Orthopedic surgeon Complications: None Condition on DC: Stable Discharge Summary: This is an 84-year-old female patient with past medical history of AFib, HFrEF, hypertension, hypothyroidism, CKD, and pacemaker, who was transferred from [facility] due to a right hip fracture. She had a mechanical fall yesterday around 7:00 p.m. while stepping on a curb, falling on the right side of her hip, followed by severe pain and inability to ambulate. The patient also had a head injury, but denies syncope, nausea, vomiting, dizziness, or vision changes. Pain is now controlled, and she denies any other symptoms such as chest pain, shortness of breath, gastrointestinal, or urinary symptoms. No other complaints at this moment. Admission patient was extensively evaluated treated including procedure was done, postoperative. Fine, ready to be discharged to rehab facility, medication reconciled, follow-up PCP in the morning, today on physical exam, Vital signs, stable ,afebrile. Pulse Oximetry reflects adequate oxygenation. General: well developed, well nourished. Awake , alert, and oriented x4, resting comfortably in the bed, in no acute distress . Skin: Warm, dry, no pallor, no rash or petechiae. HEENT: Atraumatic, normocephalic, EOMI, anicteric sclera B; pink conjunctiva; PERRLA, normal oropharynx, moist oral and nasal mucosa. Tympanic membrane , nose , throat clear. Neck: Trachea midline. Supple, full range of motion, no JVD, bruit , hepatojugular reflex , lymphadenopathy or masses, or other lesions Cardiac: Regular rhythm, regular rate no murmurs, rubs, or gallops. Normal S1 and S2, no S3 noticed. PMI is normal. Respiratory: Equal breath sounds bilaterally, no tachypnea; lungs clear to auscultation bilaterally, no wheezing ,rub or rales, or crackles. Chest wall is symmetric and without deformity. No signs of trauma. Chest wall is nontender. No signs of respiratory distress. Resonance is normal upon percussion bilaterally. Gastrointestinal: Abdomen symmetric, non-distended, soft, non-tender, normal bowel sounds x4 quadrant, normoactive, no hepatosplenomegaly , no masses , no bruit, no flank pain bilaterally. No voluntary guarding, rebound, or rigidity. No tenderness to percussion. No pulsatile masses. Equal femoral pulses. No Mccall's sign or McBurney point tenderness. Back; no CVA tenderness bilaterally, no deformities. Neck and back are without deformity as well. No tenderness noted on palpation of the spinous processes. Spinous processes are midline. Cervical, thoracic, and lumbar paraspinal muscles are not tender and are without spasm. : normal external genitalia, without lesions, swelling, masses or tenderness. Musculoskeletal: Extremities, normal range of motion, non-tender, muscle strength 5/5 x 4. Negative Homans signs bilaterally on lower extremity. Distal pulses full symmetrical, no clubbing, cyanosis , edema. Locally, on the hip dressing clean dry intact, neurovascular grossly intact Neurological: Speech is clear, alert, and oriented x 4. No motor or sensory deficit, deep tendon reflexes normal, cerebellar intact. Cranial nerves II-XII intact. Psych: Alert and or appropriate, normal affect. Vascular: Good distal pulses, which are equal x4; capillary refill less than 2 seconds. Lymphatic, no lymphadenopathy. *Problems/Diagnosis: (1) Intertrochanteric fracture of right femur Total Time Spent on D/C: > 30 Minutes Date of Service: Jan 16, 2025 Billing Provider: FIDEL MERRITT MD Common Visit Codes: [id number]-TPD/[id number] DISCH DAY >30min Problem Qualifiers (1) Intertrochanteric fracture of right femur: Qualified Codes: S72.144A - Nondisplaced intertrochanteric fracture of right femur, initial encounter for closed fracture FIDEL MERRITT MD Jan 16, 2025 18:29
== END 2025-01-16 17:49 | DRG 480 ==
LOC: ER 00:20 → ED HOLD 04:21 → EDBEDREQ 06:37 → ORTHO 4S 07:00 → CICU 2S 14:55 → PCU 3S 23:15 → SUR 3N 01-15 22:20
PROVIDERS: ADMIT Internal Medicine Critical Care Medicine; ATTEND Nurse Practitioner Family
PROC: 0QS636Z Reposition Right Upper Femur with Intramedullary Internal Fixation Device, Percutaneous Approach (ICD-10-PCS; principal; 2025-01-11 12:28)
DX: S72.144A Nondisplaced intertrochanteric fracture of right femur, initial encounter for closed fracture (principal); I50.23 Acute on chronic systolic (congestive) heart failure; I13.0 Hypertensive heart and chronic kidney disease with heart failure and stage 1 through stage 4 chronic kidney disease, or unspecified chronic kidney disease; I47.10 Supraventricular tachycardia, unspecified; I43 Cardiomyopathy in diseases classified elsewhere; I48.20 Chronic atrial fibrillation, unspecified; I25.10 Atherosclerotic heart disease of native coronary artery without angina pectoris; N18.30 Chronic kidney disease, stage 3 unspecified; S09.90XA Unspecified injury of head, initial encounter; J44.9 Chronic obstructive pulmonary disease, unspecified; E03.9 Hypothyroidism, unspecified; E87.6 Hypokalemia; W18.39XA Other fall on same level, initial encounter; Z90.49 Acquired absence of other specified parts of digestive tract; Y93.89 Activity, other specified; Y92.89 Other specified places as the place of occurrence of the external cause; Y99.8 Other external cause status; Z79.01 Long term (current) use of anticoagulants; Z95.0 Presence of cardiac pacemaker
CPT/HCPCS: 36415; 71045; 73502; 76000; 80048; 80053; 81001; 82948; 83735; 83880; 84100; 84443; 85025; 85027; 85610; 85730; 86885; 86900; 86901; 87081; 93005; 93306; 96365; 97110; 97116; 97161; 97530; 99285; A4314; A4615; A4618; A5200; A6213; A6258; A6449; C1713; C1776; G0378; J0131; J0690; J1100; J1171; J1250; J1938; J2250; J2371; J2405; J2704; J3010; J3480; J3490; J7120